=== PATIENT | male | born 1960 | race Caucasian/White ===

== ENCOUNTER 2021-07-02 08:34 | Outpatient (CLI) | payer BC | END 2021-07-02 08:35 | disposition home or self-care (01) | LOC: CSHMRI 08:34 | PROVIDERS: ATTEND Urology | DX: E27.9 Disorder of adrenal gland, unspecified (principal) | CPT/HCPCS: 74183 ==

== ENCOUNTER 2021-09-22 07:33 | Outpatient (CLI) | payer BC ==
[2021-09-22] MEDS ORDERED: Iopamidol 300 61% 100 ML VIAL FS ONE (15:12)
== END 2021-09-22 07:34 | disposition home or self-care (01) ==
LOC: CSHCT 07:33
PROVIDERS: ATTEND Family Medicine
DX: R10.84 Generalized abdominal pain (principal); Z98.890 Other specified postprocedural states; K57.30 Diverticulosis of large intestine without perforation or abscess without bleeding
CPT/HCPCS: 74177; 82565; Q9967